=== PATIENT | male | born 1985 | race Caucasian/White ===

== ENCOUNTER 2023-06-03 09:15 | Emergency (ER) | payer BC, SELFPAY ==
[2023-06-03] VITALS (25 sets, daily range): BP systolic 119–136; BP diastolic 59–88; PULSE 62–93; RESP 18; TEMP 36.5; O2SAT 96–100; BMI 32.5
--- NOTE | 2023-06-03 11:22 | CRLHL7_ITS ---
For Patients: As a result of the 21st Century Cures Act, medical imaging exams and procedure reports are released immediately into your electronic medical record. You may view this report before your referring provider. If you have questions, please contact your health care provider. Indication: Chronic diarrhea, rectal pain Technique: Volumetric multidetector CT images of the abdomen and pelvis were obtained after the administration of intravenous contrast. 100 cc Isovue 370 low osmolar intravenous contrast Comparison: None available. Findings: The lung bases are clear. The liver is normal in attenuation without intrahepatic biliary ductal dilatation. The portal vein is patent. The gallbladder is unremarkable without evidence of radiopaque calculus. There is no significant common biliary ductal dilatation or abrupt cut off. The spleen is normal in enhancement and size. The stomach and duodenum are grossly unremarkable. The pancreas is normal in enhancement without significant atrophy. The adrenal glands are unremarkable. The kidneys demonstrate preserved corticomedullary differentiation without evidence of obstructive uropathy. There is minimal nonspecific fluid seen throughout the colon and distal small bowel with minimal mucosal hyperemia. The appendix is surgically absent. There is somewhat pathologic lymph nodes along the left greater than right pelvic sidewalls the largest on series 2, image 128 measuring up to 2.8 centimeters in greatest dimension additional prominent right femoral chain lymph node is appreciated measuring up to 1.7 centimeters. Prominent left greater than right inguinal lymph nodes are identified. There is no significant mesenteric adenopathy with minimal scattered reactive changes in the right lower quadrant. No significant retroperitoneal or mesenteric adenopathy is appreciated. The aorta is nonaneurysmal. There is no significant atherosclerotic disease appreciated. The solid pelvic viscera are grossly unremarkable. There is no free fluid or free air. There is a small fat containing umbilical hernia. There is mild degenerative change of the lumbar spine with disc height loss and calcified disc protrusion at the L5-S1 level. Impression: Moderate nonspecific fluid and mucosal hyperemia within the colon and central small bowel which may represents inflammatory colitis changes. Somewhat pathologic appearing bilateral pelvic sidewall and inguinal lymph nodes are incidentally noted. No other pathologic adenopathy is identified. These could represent reactive changes versus metastatic change from unknown primary. Consider additional follow-up with repeat exam in 1 month to document stability. Please note that all CT scans at this facility use dose modulation, iterative reconstruction, and/or weight-based dosing when appropriate to reduce radiation dose to as low as reasonably achievable. Dictated by Chris Carballo MD @ 06/03/2023 1:28:35 PM (Electronically Signed)
[2023-06-03] MEDS: 0.9 % SODIUM CHLORIDE 1000 ml 1,000 ML IV (11:31)
[2023-06-03 11:33] LABS: Basophils Absolute Auto 0.03 K/uL (0.00-0.30); Basophils Percent Auto 0.4 % (0.0-3.0); Eosinophils Absolute Auto 0.31 K/uL (0.00-0.50); Eosinophils Percent Auto 4.4 % (0.0-7.0); Hemoglobin* 10.7 gm/dL (13.5-17.5); Immature Granulocytes Abs Auto 0.01 K/uL (0.00-0.30); Immature Granulocytes Pct Auto 0.1 %; Lymphocytes Percent Auto 15.3 % (20-44); Mean Corpuscular HGB Conc 30 gm/dL (32-36); Mean Corpuscular Hemoglobin 21 pg (26-34); Mean Corpuscular Volume 69 fL (80-100); Monocytes Percent Auto 11.2 % (0.0-11.0); Neutrophils Absolute Auto 4.78 K/uL (1.7-7.0); Neutrophils Percent Auto 68.6 % (42.0-72.0); Platelet Count* 261 K/uL (140-440); RDW Coefficient of Variation % 18.3 % (11.5-15.5); Red Blood Count 5.23 m/uL (4.30-5.90); White Blood Count* 6.98 K/uL (4.50-11.00)
[2023-06-03 11:35] LABS: Albumin* 4.1 g/dL (3.3-5.0); Chloride* 113 mmol/L (96-114)
[2023-06-03 11:36] LABS: Potassium* 3.9 mmol/L (3.6-5.1); Sodium* 141 mmol/L (135-149)
[2023-06-03 11:38] LABS: Alanine Aminotransferase* 40 U/L (4-50); Alkaline Phosphatase* 114 U/L (40-150); Aspartate Amino Transferase* 38 U/L (12-35); Bilirubin Total* 0.7 mg/dL (0.1-1.5); Creatinine* 0.9 mg/dL (0.5-1.5); Est. Creatinine Clearance* 122.15; Estimated Glomerular Filt Rate 112 ml/min; Total Protein* 7.2 g/dL (6.0-8.3)
[2023-06-03 11:39] LABS: Anion Gap 9 mEq/L (7-15); Blood Urea Nitrogen* 12 mg/dL (5-24); Carbon Dioxide* 19 mmol/L (20-32); Glucose* 81 mg/dL (60-115)
[2023-06-03 11:40] LABS: Calcium* 9.1 mg/dL (8.4-10.6)
[2023-06-03 11:42] LABS: C Reactive Protein* 2.9 mg/dL (0.5-1.0)
[2023-06-03 11:43] LABS: Slide Review Reflex Yes
[2023-06-03 11:50] LABS: Lactate* 1.2 mmol/L (0.5-1.9)
[2023-06-03] MEDS: KETOROLAC 15 MG/ML inj IVP (11:50)
[2023-06-03 12:05] LABS: Slide Review Acceptable Review (Acceptable)
[2023-06-03 12:09] LABS: Erythrocyte SedimentationRate* 16 mm/hr (2-15)
--- NOTE | 2023-06-03 12:27 | ED_ITS ---
HPI - General Adult General Date Seen: 06/03/23 Chief complaint: Abdominal Pain Stated complaint: Lower GI issues Time Seen by Provider: 06/03/23 11:00 Source: patient Mode of arrival: ambulatory Limitations: no limitations History of Present Illness HPI narrative: Patient is a 29-year-old male who comes in because of diarrhea and rectal pain. He tells me that he has had diarrhea essentially his entire life, multiple times a day. He does not typically get bloody stools although he did have bloody stools once was evaluated and told he had hemorrhoids. It sounds as if he was diagnosed with internal hemorrhoids. He says on Friday he had lasagna and then developed severe diarrhea. On Friday he had pasta and diarrhea has been worse since then as well. He has had a little bit of abdominal pain nothing significant. He has not had significant nausea or vomiting. No fevers. No bloody stools currently. He does have rectal pain and tenesmus. He does not participate in anal intercourse. He denies other significant health history. He has never had is diarrhea evaluated. Related Data Home Medications Medication Instructions Recorded Confirmed No Known Home Medications 06/03/23 06/03/23 Allergies Allergy/AdvReac Type Severity Reaction Status Date / Time codeine Allergy Verified 06/03/23 09:39 morphine Allergy Verified 06/03/23 09:39 shellfish derived Allergy Verified 06/03/23 09:39 Review of Systems Status of ROS: Reports: 10 or more systems reviewed and unremarkable except as noted in History and below PFSH PFS Social History Smoking Status: Never smoker Do you use any of these nicotine containing products: None Second hand tobacco smoke exposure: No How often do you have a drink containing alcohol: 2-4 times a month How many standard drinks containing alcohol do you have on a typical day: 1 or 2 How often do you have six or more drinks on one occasion: Never AUDIT-C Alcohol total score: 2 Non-prescribed substance use: denies use service: Yes Exam Narrative: Exam Narrative: Vital signs as noted above. In general, an alert, well-appearing patient. Head: Normocephalic, atraumatic. Eyes: Pupils are equal reactive. Extraocular movements are full. Conjunctivae are normal. ENT: Mucous membranes are moist. Throat is normal. Neck: Supple without lymphadenopathy. Heart: Regular rate and rhythm. No murmur or rub. Lungs: Clear bilaterally. No increased work of breathing, crackles or wheezes. Abdomen: Soft and nontender. No organomegaly. Rectal: No external hemorrhoids. He has pain with digital rectal exam, tissues feels somewhat full diffusely although I do not feel any masses or fluctuance. Extremities: Well perfused. No edema. No calf tenderness. Pulses intact. Neurologic: Patient is alert and oriented to person and place. Speech is fluent. Face is symmetric. Moves all extremities equally. Affect: Normal. Skin: Warm and dry. Well perfused. Const: Vital Signs, click to edit/add: Vital Signs - 24 hr 06/03/23 09:40 06/03/23 10:28 06/03/23 10:29 Temperature 97.7 F Pulse Rate 63 74 Pulse Rate [Pulse Oximeter] 66 Respiratory Rate 18 Blood Pressure 122/76 Blood Pressure [Ri ght Upper Arm] 120/75 Pulse Oximetry 98 96 [facility] 06/03/23 10:30 06/03/23 10:32 06/03/23 10:45 Temperature Pulse Rate 71 66 62 Pulse Rate [Pulse Oximeter] Respiratory Rate Blood Pressure 124/79 Blood Pressure [Ri ght Upper Arm] Pulse Oximetry 97 97 97 Oxygen Delivery Ks thod 06/03/23 11:00 06/03/23 11:02 06/03/23 11:15 Temperature Pulse Rate 67 65 82 Pulse Rate [Pulse Oximeter] Respiratory Rate Blood Pressure 119/69 Blood Pressure [Ri ght Upper Arm] Pulse Oximetry 97 99 100 Oxygen Delivery Ks thod 06/03/23 11:31 06/03/23 11:32 06/03/23 11:33 Temperature Pulse Rate 71 77 65 Pulse Rate [Pulse Oximeter] Respiratory Rate Blood Pressure 136/76 Blood Pressure [Ri ght Upper Arm] Pulse Oximetry 99 99 99 Oxygen Delivery Me thod 06/03/23 11:45 06/03/23 12:01 06/03/23 12:02 Temperature Pulse Rate 77 93 79 Pulse Rate [Pulse Oximeter] Respiratory Rate Blood Pressure 127/59 L Blood Pressure [Ri ght Upper Arm] Pulse Oximetry 98 96 99 [facility] 06/03/23 12:15 06/03/23 12:30 06/03/23 12:32 Temperature Pulse Rate 69 73 72 Pulse Rate [Pulse Oximeter] Respiratory Rate Blood Pressure 127/74 Blood Pressure [Ri ght Upper Arm] Pulse Oximetry 97 97 96 Oxygen Delivery Me thod 06/03/23 12:45 06/03/23 13:00 06/03/23 13:02 Temperature Pulse Rate 76 83 74 Pulse Rate [Pulse Oximeter] Respiratory Rate Blood Pressure 129/88 Blood Pressure [Ri ght Upper Arm] Pulse Oximetry 96 96 96 Oxygen Delivery Me thod 06/03/23 13:15 06/03/23 13:30 06/03/23 13:32 Temperature Pulse Rate 70 69 71 Pulse Rate [Pulse Oximeter] Respiratory Rate Blood Pressure 130/77 Blood Pressure [Ri ght Upper Arm] Pulse Oximetry 96 97 96 Oxygen Delivery Me thod 06/03/23 13:45 Temperature Pulse Rate 78 Pulse Rate [Pulse Oximeter] Respiratory Rate Blood Pressure Blood Pressure [Ri ght Upper Arm] Pulse Oximetry 99 Oxygen Delivery Me thod Course Course ED Course: An IV was placed, he was given a L of normal saline, I elected to do a CT scan given the chronicity of his symptoms in the absence of any earlier workup. Fecal occult blood was positive. CRP mildly elevated at 2.9, sed rate of 16. He is anemic with a hemoglobin of 10.7, I suspect some chronic GI loss. White count is normal at 7. Platelet count is 889312. Metabolic panel is notable for a CO2 of 19 otherwise unremarkable. Lactate is 1.[address] scan read by Radiology, results reviewed. Unable to copy paste at this time. There was some diffuse thickening and fluid filled small bowel loops and: consistent with inflammatory colitis. There is some scattered adenopathy in the abdomen and pelvis of uncertain significance with recommendation for possible follow-up in a month to document stability. He does have some tender adenopathy in inguinal region bilaterally, this may be reactive. I have discussed all this with him. He does have an appointment with primary care on June 16 to establish with a clinic and then has an appointment with [facility] scheduled on July 08. I think these are both appropriate, I would recommend that he have a colonoscopy to further evaluate his symptoms and I also suggested that he might try 2 week trial elimination of gluten to see if his symptoms are improved. Otherwise, will put him on a little prednisone, I have given him a few oxycodone as he is having significant rectal pain with bowel movements. For significant GI bleeding, fevers, severe pain return at any time to the emergency department. Vital Signs Vital signs: Initial Vital Signs Temperature 97.7 F 06/03/23 09:40 Temperature Source Temporal Artery Scan 06/03/23 09:40 Pulse Rate 66 06/03/23 09:40 Pulse Rhythm Regular 06/03/23 09:40 Respiratory Rate 18 06/03/23 09:40 Blood Pressure 120/75 06/03/23 09:40 Blood Pressure Mean 90 06/03/23 09:40 Blood Pressure Position Supine 06/03/23 09:40 Pulse Oximetry 98 06/03/23 09:40 Oxygen Delivery Method Room Air 06/03/23 09:40 Vital Signs Temperature 97.7 F 06/03/23 09:40 Pulse Rate 66 06/03/23 09:40 Respiratory Rate 18 06/03/23 09:40 Blood Pressure 120/75 06/03/23 09:40 Pulse Oximetry 98 06/03/23 09:40 Oxygen Delivery Method Room Air 06/03/23 09:40 Temperature 97.7 F 06/03/23 09:40 Pulse Rate 78 06/03/23 13:45 Respiratory Rate 18 06/03/23 09:40 Blood Pressure 130/77 06/03/23 13:32 Pulse Oximetry 99 06/03/23 13:45 Oxygen Delivery Method Room Air 06/03/23 09:40 Medications Administered Medications: Discontinued Medications Generic Name Dose Route Start Last Admin Trade Name Freq PRN Reason Stop Dose Admin Sodium Chloride 1,000 mls @ 1,000 mls/hr 06/03/23 11:30 06/03/23 12:52 0.9 % Sodium Chloride 1000 Ml IV 06/03/23 12:29 Infused .Q1H TIEN Infusion Ketorolac Tromethamine 15 mg 06/03/23 11:22 06/03/23 11:50 Ketorolac 15 Mg/Ml Inj IVP 06/03/23 11:23 15 mg ONCE ONE Administration Medical Decision Making Lab Data Labs: Lab Results 06/03/23 06/03/23 06/03/23 Range/Units 10:20 11:40 12:20 WBC 6.98 (4.50-11.00) K/uL RBC 5.23 (4.30-5.90) m/uL Hgb 10.7 L (13.5-17.5) gm/dL Hct 36.0 L (37.0-53.0) % MCV 69 L (80-100) fL MCH 21 L (26-34) pg MCHC 30 L (32-36) gm/dL RDW Coeff of Danielle 18.3 H (11.5-15.5) % Plt Count 261 (140-440) K/uL Neut % (Auto) 68.6 (42.0-72.0) % Lymph % (Auto) 15.3 L (20-44) % Carlton % (Auto) 11.2 H (0.0-11.0) % Eos % (Auto) 4.4 (0.0-7.0) % Baso % (Auto) 0.4 (0.0-3.0) % Neut # (Auto) 4.78 (1.7-7.0) K/uL Lymph # (Auto) 1.10 (0.90-2.90) K/uL Carlton # (Auto) 0.80 (0.00-0.90) K/UL Eos # (Auto) 0.31 (0.00-0.50) K/uL Baso # (Auto) 0.03 (0.00-0.30) K/uL Abs Immat Gran (auto) 0.01 (0.00-0.30) K/uL Imm/Tot Granulo (auto) 0.1 % Diff Slide Review Acceptable Review (Acceptable) ESR 16 H (2-15) mm/hr Sodium 141 (135-149) mmol/L Potassium 3.9 (3.6-5.1) mmol/L Chloride 113 (96-114) mmol/L Carbon Dioxide 19 L (20-32) mmol/L Anion Gap 9 (7-15) mEq/L BUN 12 (5-24) mg/dL Creatinine 0.9 (0.5-1.5) mg/dL Estimated Creat Clear 122.15 Estimated GFR 112 ml/min Glucose 81 (60-115) mg/dL Lactate 1.2 (0.5-1.9) mmol/L Calcium 9.1 (8.4-10.6) mg/dL Total Bilirubin 0.7 (0.1-1.5) mg/dL Direct Bilirubin 0.0 (0.0-0.5) mg/dL AST 38 H (12-35) U/L ALT 40 (4-50) U/L Alkaline Phosphatase 114 (40-150) U/L C-Reactive Protein 2.9 H (0.5-1.0) mg/dL Total Protein 7.2 (6.0-8.3) g/dL Albumin 4.1 (3.3-5.0) g/dL Stool Occult Blood Positive (Negative) Discharge Plan Discharge Clinical Impression: Enteritis Patient Disposition: Home, Self-Care Condition: Stable Instructions: Enteritis (ED) Additional Instructions: Medications as prescribed. Recommend GI and primary care follow-up as you have previously planned. If at any time you have severe pain, high fevers, significant bloody stools return to the emergency department. Prescriptions: No Action No Known Home Medications Follow Up/Referrals: Provider,Not a Local [Primary Care Provider] - Stand Alone Forms: [employer] Info Instructions
[2023-06-03 12:28] LABS: Fecal Occult Blood* Positive (Negative)
--- NOTE | 2023-06-04 16:17 | ED.NURSE ---
Received call from pt requesting his discharge information be faxed to [phone]. Information faxed as requested by the patient.
== END 2023-06-03 13:57 | disposition home or self-care (01) ==
PROVIDERS: Emergency Provider Emergency Medicine
DX: K52.9 Noninfective gastroenteritis and colitis, unspecified (principal); A04.6 Enteritis due to Yersinia enterocolitica
CPT/HCPCS: 36415; 74177; 80048; 80076; 82270; 83605; 85025; 85651; 86140; 96374; 99283; 99284; J1885; J7030; Q9967

== ENCOUNTER 2023-07-09 16:20 | Emergency (ER) | payer BC, SELFPAY ==
[2023-07-09 16:25] VITALS: BP 122/82; PULSE 112; RESP 16; O2SAT 96
[2023-07-09 16:28] VITALS: BP 123/88; PULSE 134; RESP 22; TEMP 38.3; O2SAT 97; BMI 31.2
--- NOTE | 2023-07-09 16:32 | CRLHL7_ITS ---
For Patients: As a result of the Cures Act, medical imaging exams and procedure reports are released immediately into your electronic medical record. You may view this report before your referring provider. If you have questions, please contact your health care provider. INDICATION: Covid positive, strep positive COMPARISON: None. TECHNIQUE: 1 view chest radiograph. FINDINGS: Lung volumes are good. No focal consolidations. No pulmonary edema. No pleural effusion. No pneumothorax. No pneumomediastinum. Normal cardiomediastinal silhouette. Bones: Normal for age. IMPRESSION: Lungs clear. Normal chest radiograph. Dictated by Yael Servin MD @ 07/09/2023 8:23:31 PM (Electronically Signed)
--- NOTE | 2023-07-09 16:35 | ED_ITS ---
HPI - General Adult General Chief complaint: Shortness of Breath/Dyspnea Stated complaint: Covid+, strep +. 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 He was tested for strep and COVID was positive for both today. Amoxicillin has been called in for him as well as Paxil of id. They present to the ER because he has had some loose stools and when he drinks water goes right through him in the form of diarrhea. He feels weak. And has a fever. The emerged the urgent care provider wanted him checked in the ER. 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 He has been off work until he gets straight away on his Crohn's medication. He feels short of breath a little bit but his O2 sat is 97%. Related Data Previous Rx's Medication Instructions Recorded amoxicillin 500 mg capsule 500 mg PO BID 10 days #20 caps 07/09/23 nirmatrelvir 300 mg (150 mg See Rx Instructions PO .COMPLEX 07/09/23 x2)-ritonavir 100 mg tablet,dose #30 ea pack (Paxlovid) Allergies Allergy/AdvReac Type Severity Reaction Status Date / Time codeine Allergy Verified 07/09/23 16:31 morphine Allergy Verified 07/09/23 16:31 shellfish derived Allergy Verified 07/09/23 16:31 Review of Systems Status of ROS: Reports: 6 or more systems reviewed and unremarkable except as noted in History and below PFSH PFSH Social History Smoking Status: Never smoker Do you use any of these nicotine containing products: None Second hand tobacco smoke exposure: No How often do you have a drink containing alcohol: 2-4 times a month How many standard drinks containing alcohol do you have on a typical day: 1 or 2 How often do you have six or more drinks on one occasion: Never AUDIT-C Alcohol total score: 2 Non-prescribed substance use: denies use service: Yes Exam Narrative: Exam Narrative: Objective: Patient's temp 101? vital signs otherwise are largely unremarkable his pulse is elevated HEENT is unremarkable neck is supple chest is clear no rales or wheezing Heart rhythm regular without murmur Abdomen is soft Extremities are no edema no skin rashes noted Good peripheral perfusion Const: Vital Signs, click to edit/add: Vital Signs - 24 hr 07/09/23 16:25 07/09/23 16:28 07/09/23 16:45 Temperature 101.0 F H Pulse Rate [Pulse Oximeter] 112 H 134 H 117 H Respiratory Rate 16 22 16 Blood Pressure [Ri ght Upper Arm] 122/82 123/88 117/74 Pulse Oximetry 96 97 96 Oxygen Delivery Me thod Room Air Room Air Room Air 07/09/23 17:45 07/09/23 18:10 Temperature Pulse Rate [Pulse Oximeter] 98 100 Respiratory Rate 16 16 Blood Pressure [Ri ght Upper Arm] 125/66 115/75 Pulse Oximetry 97 97 Oxygen Delivery Me thod Room Air Room Air Course Vital Signs Vital signs: Initial Vital Signs Pulse Rate 112 H 07/09/23 16:25 Respiratory Rate 16 07/09/23 16:25 Respiratory Effort Normal, Spontaneous, Non-Labored 07/09/23 16:25 Respiratory Depth Normal 07/09/23 16:25 Respiratory Pattern Normal 07/09/23 16:25 Blood Pressure 122/82 07/09/23 16:25 Blood Pressure Mean 95 07/09/23 16:25 Blood Pressure Position Supine 07/09/23 16:25 Pulse Oximetry 96 07/09/23 16:25 Oxygen Delivery Method Room Air 07/09/23 16:25 Vital Signs Pulse Rate 112 H 07/09/23 16:25 Respiratory Rate 16 07/09/23 16:25 Blood Pressure 122/82 07/09/23 16:25 Pulse Oximetry 96 07/09/23 16:25 Oxygen Delivery Method Room Air 07/09/23 16:25 Temperature 101.0 F H 07/09/23 16:28 Pulse Rate 100 07/09/23 18:10 Respiratory Rate 16 07/09/23 18:10 Blood Pressure 115/75 07/09/23 18:10 Pulse Oximetry 97 07/09/23 18:10 Oxygen Delivery Method Room Air 07/09/23 18:10 Medications Administered Medications: Discontinued Medications Generic Name Dose Route Start Last Admin Trade Name Freq PRN Reason Stop Dose Admin Cefazolin Sodium 1 gm 07/09/23 16:38 07/09/23 17:02 Cefazolin 1 Gm Inj IVP 07/09/23 16:39 1 gm ONCE ONE Administration Sodium Chloride 1,000 mls @ 6,000 mls/hr 07/09/23 16:45 07/09/23 17:49 0.9 % Sodium Chloride 1000 Ml IV 07/09/23 16:54 Infused .Q10M TIEN Infusion Medical Decision Making MDM Narrative Medical decision making narrative: 29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 He has amoxicillin Paxil of id called into the pharmacy. Think at this time we give some IV fluid. , check his labs and have him start the medication as above. addendum 6:00 p.m. I do not see anything dramatic on his chest x-ray, his labs look reassuring, I think we can long go home after his fluid and resume the amox icillin and Paxil of id. Recheck with regular doctor by phone in the next couple of day Lab Data Labs: Lab Results 07/09/23 Range/Units 16:47 WBC 9.67 (4.50-11.00) K/uL RBC 5.75 (4.30-5.90) m/uL Hgb 12.0 L (13.5-17.5) gm/dL Hct 39.6 (37.0-53.0) % MCV 69 L (80-100) fL MCH 21 L (26-34) pg MCHC 30 L (32-36) gm/dL RDW Coeff of Danielle 19.9 H (11.5-15.5) % Plt Count 296 (140-440) K/uL Neut % (Auto) 81.6 H (42.0-72.0) % Lymph % (Auto) 7.0 L (20-44) % Cobb % (Auto) 9.7 (0.0-11.0) % Eos % (Auto) 1.1 (0.0-7.0) % Baso % (Auto) 0.4 (0.0-3.0) % Neut # (Auto) 7.90 H (1.7-7.0) K/uL Lymph # (Auto) 0.70 L (0.90-2.90) K/uL Cobb # (Auto) 0.90 (0.00-0.90) K/UL Eos # (Auto) 0.11 (0.00-0.50) K/uL Baso # (Auto) 0.04 (0.00-0.30) K/uL Abs Immat Gran (auto) 0.02 (0.00-0.30) K/uL Imm/Tot Granulo (auto) 0.2 % Sodium 139 (135-149) mmol/L Potassium 4.0 (3.6-5.1) mmol/L Chloride 107 (96-114) mmol/L Carbon Dioxide 20 (20-32) mmol/L Anion Gap 12 (7-15) mEq/L BUN 13 (5-24) mg/dL Creatinine 1.0 (0.5-1.5) mg/dL Estimated Creat Clear 109.93 Estimated GFR 99 ml/min Glucose 113 (60-115) mg/dL Calcium 8.9 (8.4-10.6) mg/dL Discharge Plan Discharge Clinical Impression: COVID-19, Acute streptococcal pharyngitis Patient Disposition: Home w/ Parent or Adult Condition: Improved Instructions: Strep Throat (DC), COVID-19 (Coronavirus Disease 2019) (ED) Additional Instructions: rest, fluids, start the antibiotic and Paxilovid as planned. Tylenol be appropriate as well. Return to ED as needed, follow-up with primary care by phone next couple of days, continue work with her GI doctors regarding her Crohn's diagnosis. Activity Level: Light activity Prescriptions: No Action amoxicillin 500 mg capsule 500 mg PO BID 10 Days Qty: 20 0RF Paxlovid 300 mg (150 mg x 2)-100 mg tablets,dose pack See Rx Instructions PO .COMPLEX Qty: 30 0RF Rx Instructions: take TWO 150 mg tablets of nirmatrelvir with ONE 100 mg tablet of ritonavir twice daily for 5 days PO Follow Up/Referrals: Provider,Not a Local [Primary Care Provider] - Stand Alone Forms: [employer] Info Instructions
[2023-07-09 16:45] VITALS: BP 117/74; PULSE 117; RESP 16; O2SAT 96
[2023-07-09] MEDS: 0.9 % SODIUM CHLORIDE 1000 ml 1,000 ML 6000 ML IV (16:55)
[2023-07-09] MEDS: CEFAZOLIN 1 GM inj IVP (17:02)
[2023-07-09 17:15] LABS: Basophils Absolute Auto 0.04 K/uL (0.00-0.30); Basophils Percent Auto 0.4 % (0.0-3.0); Eosinophils Absolute Auto 0.11 K/uL (0.00-0.50); Eosinophils Percent Auto 1.1 % (0.0-7.0); Hematocrit 39.6 % (37.0-53.0); Immature Granulocytes Abs Auto 0.02 K/uL (0.00-0.30); Immature Granulocytes Pct Auto 0.2 %; Mean Corpuscular HGB Conc 30 gm/dL (32-36); Mean Corpuscular Hemoglobin 21 pg (26-34); Mean Corpuscular Volume 69 fL (80-100); Monocytes Percent Auto 9.7 % (0.0-11.0); Neutrophils Percent Auto 81.6 % (42.0-72.0); Platelet Count* 296 K/uL (140-440); RDW Coefficient of Variation % 19.9 % (11.5-15.5); Red Blood Count 5.75 m/uL (4.30-5.90); White Blood Count* 9.67 K/uL (4.50-11.00)
[2023-07-09 17:17] LABS: Slide Review Reflex No
[2023-07-09 17:31] LABS: Chloride* 107 mmol/L (96-114); Sodium* 139 mmol/L (135-149)
[2023-07-09 17:34] LABS: Est. Creatinine Clearance* 109.93; Estimated Glomerular Filt Rate 99 ml/min
[2023-07-09 17:35] LABS: Anion Gap 12 mEq/L (7-15); Blood Urea Nitrogen* 13 mg/dL (5-24); Calcium* 8.9 mg/dL (8.4-10.6); Carbon Dioxide* 20 mmol/L (20-32); Glucose* 113 mg/dL (60-115)
[2023-07-09 17:45] VITALS: BP 125/66; PULSE 98; RESP 16; O2SAT 97
[2023-07-09 18:10] VITALS: BP 115/75; PULSE 100; RESP 16; O2SAT 97
== END 2023-07-09 18:28 | disposition home or self-care (01) ==
PROVIDERS: Emergency Provider Family Medicine
DX: J02.0 Streptococcal pharyngitis (principal); U07.1 COVID-19
CPT/HCPCS: 36415; 71045; 80048; 85025; 95992; 96374; 99284; J0690; J7030

== ENCOUNTER 2024-05-25 17:49 | Emergency (ER) | payer BC, SELFPAY ==
[2024-05-25] VITALS (22 sets, daily range): BP systolic 113–134; BP diastolic 77–92; PULSE 54–82; RESP 14; TEMP 37; O2SAT 93–100; BMI 31.9
--- NOTE | 2024-05-25 18:03 | ED_ITS ---
HPI - General Adult General Date Seen: 05/25/24 Chief complaint: Arrhythmia/Palpitations Stated complaint: heart palpitations Time Seen by Provider: 05/25/24 17:57 History of Present Illness HPI narrative: This is a very pleasant 38-year-old male. He has a past medical history of Crohn's disease and subclinical Graves disease. He normally follows with the [facility] for his endocrinology care. His Crohn's is well controlled on Entyvio. No recent diarrhea, abdominal pain, or bloody stools. He has no history of heart disease. 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 He is presenting to the ER today for evaluation of palpitations. He actually 1st noted symptoms about 4 days ago on Friday when he was flying out for a short trip as a ship pilot dispatcher. He noted some fullness in his left ear while taking off from the airport. He had a checked out an urgent care in [place] and was diagnosed with eustachian tube dysfunction. He was put on a an oral decongestant) Sudafed). He was given a dose of Sudafed Friday afternoon and then took to more Sudafed tablet Friday morning. That day on Friday he began to notice occasional episodes with his heart was beating hard any could feel his pulse going up into his chest. These were isolated heartbeats but not persistent runs of tachycardia. They have been persistent since then. Suspect than that might be the Sudafed he stopped taking that is not had any more Sudafed since Friday morning. He has also cut out caffeine. He does not take any other stimulants. No alcohol. He is not having any chest pain. No recent fever or chills. No cough. No shortness of breath. No abdominal pain. He has been working hard on his health and has been losing about 4 lb per month this year intentionally because of diet and exercise. No recent unintentional weight loss. No swelling in his legs. Related Data Previous Rx's ?Medication ?Instructions ?Recorded nirmatrelvir 300 mg (150 mg See Rx Instructions PO .COMPLEX 07/09/23 x2)-ritonavir 100 mg tablet,dose #30 ea pack (Paxlovid) methimazole 10 mg tablet 10 mg PO DAILY #14 tabs 05/25/24 Allergies Allergy/AdvReac Type Severity Reaction Status Date / Time codeine Allergy Verified 07/09/23 16:31 morphine Allergy Verified 07/09/23 16:31 shellfish derived Allergy Verified 07/09/23 16:31 [facility] Social History Smoking Status: Never smoker Do you use any of these nicotine containing products: None Second hand tobacco smoke exposure: No How often do you have a drink containing alcohol: 2-4 times a month How many standard drinks containing alcohol do you have on a typical day: 1 or 2 How often do you have six or more drinks on one occasion: Never AUDIT-C Alcohol total score: 2 Non-prescribed substance use: denies use service: Yes Exam Narrative: Exam Narrative: Constitutional: Appears well-developed and well-nourished. Alert. Conversant. Non toxic. HENT: Head: Atraumatic. Nose: Nose normal. Mouth/Throat: Oral mucosa is clear and moist. no trismus. Pharynx normal. Right ear: Pinna, mastoid, canal, TM are normal. Left ear: Pinna, mastoid, canal normal. Small amount of clear fluid behind the TM. No erythema or bulging. Eyes: Conjunctivae normal. EOM normal. Pupils equal, round, and reactive to light. No scleral icterus. Neck: Normal range of motion. Neck supple. No tracheal deviation present. No thyromegaly. Cardiovascular: Normal rate, regular rhythm with occasional irregularities corresponding to PVCs on his cardiac specialist. These PVCs directly correspond to his palpitations symptom. No gallop. No friction rub. No murmur heard. Symmetric radial and PT artery pulses . No JVD Pulmonary/Chest: Effort normal. No stridor. No respiratory distress. No wheezes. No rales. No rhonchi . No tenderness. Abdominal: Soft. No distension. No mass. No tenderness. No rebound. No guarding. Musculoskeletal: RUE: Normal range of motion. No tenderness. No deformity LUE: Normal range of motion. No tenderness. No deformity RLE: Normal range of motion. No edema. No tenderness. No deformity LLE: Normal range of motion. No edema. No tenderness. No deformity Lymph: No cervical adenopathy. Neurological: Alert and oriented to person, place, and time. Normal strength. CN II-VII intact. No sensory deficit. GCS eye subscore is 4. GCS verbal subscore is 5. GCS motor subscore is 6. Normal coordination Skin: Skin is warm and dry. No rash noted. No pallor. Normal capillary refill. Psychiatric: Normal mood. Normal affect. Const: Vital Signs, click to edit/add: Vital Signs - 24 hr 05/25/24 17:57 05/25/24 18:02 05/25/24 18:03 Temperature 98.6 F Pulse Rate 67 65 Pulse Rate [Apical ] 67 Respiratory Rate 14 Blood Pressure 134/92 H Pulse Oximetry 96 96 97 Oxygen Delivery Me thod Room Air 05/25/24 18:15 05/25/24 18:30 05/25/24 18:32 Temperature Pulse Rate 70 62 57 L Pulse Rate [Apical ] Respiratory Rate Blood Pressure 126/82 Pulse Oximetry 98 95 96 Oxygen Delivery Me thod 05/25/24 18:45 05/25/24 19:00 05/25/24 19:02 Temperature Pulse Rate 56 L 68 75 Pulse Rate [Apical ] Respiratory Rate Blood Pressure 129/83 Pulse Oximetry 95 96 93 Oxygen Delivery Me thod 05/25/24 19:15 05/25/24 19:30 05/25/24 19:32 Temperature Pulse Rate 54 L 66 65 Pulse Rate [Apical ] Respiratory Rate Blood Pressure 121/81 Pulse Oximetry 94 96 95 Oxygen Delivery Me thod 05/25/24 19:45 05/25/24 20:00 05/25/24 20:01 Temperature Pulse Rate 61 60 57 L Pulse Rate [Apical ] Respiratory Rate Blood Pressure 113/77 Pulse Oximetry 95 95 95 Oxygen Delivery Me thod 05/25/24 20:02 05/25/24 20:15 05/25/24 20:30 Temperature Pulse Rate 61 62 82 Pulse Rate [Apical ] Respiratory Rate Blood Pressure Pulse Oximetry 96 96 96 Oxygen Delivery Me thod 05/25/24 20:31 05/25/24 20:45 05/25/24 21:00 Temperature Pulse Rate 57 L 63 77 Pulse Rate [Apical ] Respiratory Rate Blood Pressure 115/80 Pulse Oximetry 96 96 100 Oxygen Delivery Me thod 05/25/24 21:02 Temperature Pulse Rate 69 Pulse Rate [Apical ] Respiratory Rate Blood Pressure 124/87 Pulse Oximetry 100 Oxygen Delivery Me thod Course Vital Signs Vital signs: Initial Vital Signs Temperature 98.6 F 05/25/24 17:57 Temperature Source Temporal Artery Scan 05/25/24 17:57 Pulse Rate 67 05/25/24 17:57 Pulse Rhythm Regular 05/25/24 17:57 Respiratory Rate 14 05/25/24 17:57 Blood Pressure Position Supine 05/25/24 17:57 Pulse Oximetry 96 05/25/24 17:57 Oxygen Delivery Method Room Air 05/25/24 17:57 Vital Signs Temperature 98.6 F 05/25/24 17:57 Pulse Rate 67 05/25/24 17:57 Respiratory Rate 14 05/25/24 17:57 Pulse Oximetry 96 05/25/24 17:57 Oxygen Delivery Method Room Air 05/25/24 17:57 Temperature 98.6 F 05/25/24 17:57 Pulse Rate 69 05/25/24 21:02 Respiratory Rate 14 05/25/24 17:57 Blood Pressure 124/87 05/25/24 21:02 Pulse Oximetry 100 05/25/24 21:02 Oxygen Delivery Method Room Air 05/25/24 17:57 Medical Decision Making MDM Narrative Medical decision making narrative: This patient presents for evaluation of palpitations. Initial ECG shows normal sinus rhythm and no dysrhythmogenic abnormality such as WPW, prolonged QT, Brugada syndrome, and no ischemia. shelter monitor while the patient here in the ER showed no dysrhythmia but does show fairly frequent PVCs. He has them once or twice every minute.. A broad differential diagnosis was considered including SVT, Atrial fibrillation, ventricular arrhythmia, acute electrolyte abnormality, drugs/medications, caffeine intake or other stimulants, medication side effect, anemia, heart disease, PE, among others. Suspect that his PVCs are probably triggered by the recent doses of Sudafed that he took for his eustachian tube dysfunction. However he has not had any Sudafed since Friday morning, about 60 hours ago and still has PVCs. Labs show undetectable a low TSH but normal free T4. He has a known history of Graves disease and follows with endocrinology at [facility] for that. His labs have not been abnormal enough yet for [place] to initiate any specific treatment for his thyroid. I did contact the on-call credit reference clerk with [facility], . He would recommend that we start the patient on methimazole 10 mg daily and will have the patient follow-up in the [facility] endocrinology. Would hold off on any beta-kiara for now since his resting heart rate is around 60. The doctor indicates that he will pass the message through to this patient's primary credit reference clerk to arrange a follow-. Plan will be that the patient will give another 24 hours or so and see if the PVCs resolve after the Sudafed gets out of his system further. PVCs are not resolving he will start on methimazole and follow-up with his credit reference clerk at [place] no risks factors to warrant admission. Clinical judgement suggests that supportive outpatient management is indicated. Lab Data Labs: Lab Results 05/25/24 Range/Units 18:36 WBC 8.61 (4.50-11.00) K/uL RBC 5.03 (4.30-5.90) m/uL Hgb 15.3 (13.5-17.5) gm/dL Hct 43.1 (37.0-53.0) % MCV 86 (80-100) fL MCH 30 (26-34) pg MCHC 36 (32-36) gm/dL RDW Coeff of Danielle 12.3 (11.5-15.5) % Plt Count 209 (140-440) K/uL Neut % (Auto) 57.9 (42.0-72.0) % Lymph % (Auto) 27.3 (20-44) % Hunt % (Auto) 8.7 (0.0-11.0) % Eos % (Auto) 5.3 (0.0-7.0) % Baso % (Auto) 0.7 (0.0-3.0) % Neut # (Auto) 4.98 (1.7-7.0) K/uL Lymph # (Auto) 2.35 (0.90-2.90) K/uL Hunt # (Auto) 0.70 (0.00-0.90) K/UL Eos # (Auto) 0.46 (0.00-0.50) K/uL Baso # (Auto) 0.06 (0.00-0.30) K/uL Abs Immat Gran (auto) 0.01 (0.00-0.30) K/uL Imm/Tot Granulo (auto) 0.1 % Sodium 136 (135-149) mmol/L Potassium 3.5 L (3.6-5.1) mmol/L Chloride 106 (96-114) mmol/L Carbon Dioxide 22 (20-32) mmol/L Anion Gap 8 (7-15) mEq/L BUN 13 (5-24) mg/dL Creatinine 1.0 (0.5-1.5) mg/dL Estimated Creat Clear 108.86 Estimated GFR 98 ml/min Glucose 86 (60-115) mg/dL Calcium 9.5 (8.4-10.6) mg/dL Magnesium 2.0 (1.5-2.6) mg/dL Troponin I < 0.01 L (0.01-0.04) ng/mL TSH < 0.015 L (0.270-4.200) uIU/mL Free T4 1.02 (0.70-1.85) ng/dL ECG Data Attestation: I personally reviewed and interpreted this ECG as follows: Interpretation: Sinus bradycardia with sinus arrhythmia Rate: 58 [place]: 142 QRS axis: Normal. ST segment/T wave: No ST segment elevation or depression. QTc: 404 Discharge Plan Discharge Clinical Impression: Symptomatic PVCs, Graves disease Instructions: Hyperthyroidism (ED), Premature Ventricular Contractions (ED) Additional Instructions: As we discussed, we can see that your palpitations are being caused by premature ventricular contractions. These are unifocal. PVCs are by and large a benign occasion extra beat caused by your heart electrical conduction system. I suspect that your PVCs are being caused 1 of 2 things. These could be a side effects of the Sudafed you took on Friday. In that case the PVCs will likely re solve in the next 24-36 hours . It is also possible that the PVCs are being triggered by your thyroid disease. I have spoken to your endocrinology team at [facility]. They recommend that you start on a thyroid medication called methimazole. Please send your credit reference clerk at [place] a message or call his office tomorrow to discuss her thyroid and arrange a follow-up visit If you have any worsening symptoms or more frequent PVCs or new difficulty breathing or chest pain or fainting spells, please come back to the ER right away. Prescriptions: New methimazole 10 mg tablet 10 mg PO DAILY Qty: 14 0RF No Action Paxlovid 300 mg (150 mg x 2)-100 mg tablets,dose pack See Rx Instructions PO .COMPLEX Qty: 30 0RF Rx Instructions: take TWO 150 mg tablets of nirmatrelvir with ONE 100 mg tablet of ritonavir twice daily for 5 days PO Follow Up/Referrals: Provider,Not a Local [Primary Care Provider] - Stand Alone Forms: [employer] Info Instructions
[2024-05-25 18:42] LABS: Basophils Absolute Auto 0.06 K/uL (0.00-0.30); Basophils Percent Auto 0.7 % (0.0-3.0); Eosinophils Absolute Auto 0.46 K/uL (0.00-0.50); Eosinophils Percent Auto 5.3 % (0.0-7.0); Hematocrit 43.1 % (37.0-53.0); Hemoglobin* 15.3 gm/dL (13.5-17.5); Immature Granulocytes Abs Auto 0.01 K/uL (0.00-0.30); Immature Granulocytes Pct Auto 0.1 %; Lymphocytes Absolute Auto 2.35 K/uL (0.90-2.90); Lymphocytes Percent Auto 27.3 % (20-44); Mean Corpuscular HGB Conc 36 gm/dL (32-36); Mean Corpuscular Hemoglobin 30 pg (26-34); Mean Corpuscular Volume 86 fL (80-100); Monocytes Percent Auto 8.7 % (0.0-11.0); Neutrophils Absolute Auto 4.98 K/uL (1.7-7.0); Neutrophils Percent Auto 57.9 % (42.0-72.0); Platelet Count* 209 K/uL (140-440); RDW Coefficient of Variation % 12.3 % (11.5-15.5); Red Blood Count 5.03 m/uL (4.30-5.90); White Blood Count* 8.61 K/uL (4.50-11.00)
[2024-05-25 18:49] LABS: Slide Review Reflex No
[2024-05-25 18:54] LABS: Chloride* 106 mmol/L (96-114); Sodium* 136 mmol/L (135-149)
[2024-05-25 18:55] LABS: Potassium* 3.5 mmol/L (3.6-5.1)
[2024-05-25 18:57] LABS: Anion Gap 8 mEq/L (7-15); Carbon Dioxide* 22 mmol/L (20-32); Est. Creatinine Clearance* 108.86; Estimated Glomerular Filt Rate 98 ml/min
[2024-05-25 18:58] LABS: Blood Urea Nitrogen* 13 mg/dL (5-24); Calcium* 9.5 mg/dL (8.4-10.6); Glucose* 86 mg/dL (60-115)
[2024-05-25 19:12] LABS: Troponin I* < 0.01 ng/mL (0.01-0.04)
[2024-05-25 19:59] LABS: TSH With Reflex to FT4* < 0.015 uIU/mL (0.270-4.200)
[2024-05-25 20:51] LABS: Free T4 Free Thyroxine* 1.02 ng/dL (0.70-1.85)
== END 2024-05-25 21:13 | disposition home or self-care (01) ==
PROVIDERS: Emergency Provider Emergency Medicine
DX: I49.3 Ventricular premature depolarization (principal); E05.00 Thyrotoxicosis with diffuse goiter without thyrotoxic crisis or storm
CPT/HCPCS: 36415; 80048; 83735; 84439; 84443; 84484; 85025; 93005; 99283; 99284

== ENCOUNTER 2024-07-02 10:23 | Outpatient (CLI) | payer BC, SELFPAY ==
--- NOTE | 2024-07-02 10:45 | CRLHL7_ITS ---
For Patients: As a result of the Century Cures Act, medical imaging exams and procedure reports are released immediately into your electronic medical record. You may view this report before your referring provider. If you have questions, please contact your health care provider. CLINICAL HISTORY: Elevated transaminase levels COMPARISON: CT 06/03/2023 TECHNIQUE: Real time patel scale imaging and color Doppler analysis was performed of the abdomen. FINDINGS: Sonographic imaging demonstrates normal size and mildly increased echotexture of the liver. The spleen is of normal size. The pancreas appears normal. The proximal abdominal aorta and IVC appear normal. There is no evidence of ascites. The gallbladder is of normal size and there is no evidence of sludge or stones within the gallbladder lumen. The gallbladder wall measures 1.8 mm in thickness. The common bile duct measures 2.0 mm in size within the reji hepatis. The kidneys appear symmetric. The right kidney measures 11.0 cm in length and the left kidney measures 11.5 cm. There is no evidence of a renal calculus or hydronephrosis. IMPRESSION: Mild diffuse hepatic steatosis. Remainder unremarkable. Dictated by Trenton Bianchi MD @ 07/04/2024 6:04:12 PM (Electronically Signed)
== END 2024-07-02 10:24 | disposition home or self-care (01) ==
LOC: US 10:24
PROVIDERS: PCP Family Medicine; Visit Provider Internal Medicine Gastroenterology
DX: R74.01 Elevation of levels of liver transaminase levels (principal); K76.0 Fatty (change of) liver, not elsewhere classified
CPT/HCPCS: 76700